=== PATIENT | male | born 1940 | race Caucasian/White ===

== ENCOUNTER 2017-05-16 15:06 | Emergency (ER) | payer MEDICARE, OTHER ==
--- NOTE | 2017-05-16 15:28 | CT ---
Head CT Technique: Multiple axial sections through the brain were obtained. Intravenous contrast was not utilized. Comparison: Prior head CT exam of 09/21/12 and MRI brain of 09/21 12 is available. Findings: Ventricles along with basal cisterns and sulci over convexities are mildly prominent. There is mild diminished density noted within portions of the periventricular and subcortical white matter. There is also some diminished density within the basal ganglia being seen likely of similar etiology. Small hemorrhage is seen within the shannan to the right of midline. No midline shift or mass effect is seen. Bone window settings were reviewed which shows no acute calvarial abnormality. Visualized sinuses are clear. Impression: 1. Small hemorrhage within the shannan. 2. Senescent change as noted above. 3. No additional abnormality is seen. Diagnostic code #5
--- NOTE | 2017-05-16 15:43 | EDM.PDOC ---
ED HPI GENERAL MEDICAL PROBLEM - General Chief Complaint: Neuro Symptoms/Deficits Stated Complaint: [facility] Time Seen by Provider: 05/16/17 15:11 Source of Information: Reports: Patient, EMS, Family () History Limitations: Reports: Physical Impairment - History of Present Illness INITIAL COMMENTS - FREE TEXT/NARRATIVE: According to the patient's , the patient was behaving normally this morning. He came in from outside around 09:30, which was his last normal. He developed generalized weakness, worse on the left than the right, and became aphasic around 10:00. According to both the patient's and EMS, the patient refused to come to the ED. When EMS did arrive, they found the patient's EP to be 210/110 with a heart rate of 72, saturating 96% on room air. The patient refused to have an IV placed. EMS states that the patient DID take his blood pressure medication this morning. Here in the ED, the patient is able to nod and mumble, indicating that he has had a headache for the past 2 days. He denies having chest pain or dyspnea. The patient's PCP is Dr. Lamont Luu. Headache Pain Score (Numeric/FACES): 4 - Related Data Allergies Allergy/AdvReac Type Severity Reaction Status Date / Time Iodinated Contrast- Oral and Allergy Airway Verified 05/16/17 15:36 IV Dye Tightness [Iodinated Contrast Media - IV Dye] ioversol Allergy Airway Verified 05/16/17 15:36 Tightness Penicillins Allergy Hives Verified 05/16/17 15:36 Home Meds: Home Meds Ezetimibe [Zetia] 10 mg PO DAILY 05/16/17 [History] Losartan/Hydrochlorothiazide [Losartan-HCTZ 100-12.5 MG] 1 tab PO DAILY [History] metFORMIN [Glucophage] 1,000 mg PO BIDMEALS 05/16/17 [History] Past Medical History Cardiovascular History: Reports: CAD, High Cholesterol, Hypertension, Other ( See Below) (Bilateral carotid artery stenosis) Musculoskeletal History: Reports: Back Pain, Chronic Endocrine/Metabolic History: Reports: Diabetes, Type II Oncologic (Cancer) History: Reports: Colon - Past Surgical History HEENT Surgical History: Reports: Cataract Surgery (bilateral) GI Surgical History: Reports: Colon (Hemicolectomy), Colonoscopy, EGD Endocrine Surgical History: Reports: Parathyroidectomy Neurological Surgical History: Reports: Lumbar Spine (L4/L5 discectomy and fusion) Musculoskeletal Surgical History: Reports: ORIF (left clavicle) Social & Family History - Tobacco Use Smoking Status *Q: Former Smoker Years of Tobacco use: 33 Packs/Tins Daily: 1 Month Tobacco Last Used: Quit around 1991 Second Hand Smoke Exposure: No - Caffeine Use Caffeine Use: Reports: None - Alcohol Use Alcohol Use History: Yes Days Per Week of Alcohol Use: 0 Alcohol Use Frequency: Rarely - Recreational Drug Use Recreational Drug Use: No - Living Situation & Occupation Living situation: Reports: , with Spouse Occupation: Retired ED ROS GENERAL - Review of Systems Review Of Systems: See Below Constitutional: Reports: No Symptoms HEENT: Reports: No Symptoms Respiratory: Reports: No Symptoms Cardiovascular: Reports: No Symptoms Endocrine: Reports: No Symptoms GI/Abdominal: Reports: No Symptoms : Reports: No Symptoms Musculoskeletal: Reports: No Symptoms Skin: Reports: No Symptoms Neurological: Reports: No Symptoms Psychiatric: Reports: No Symptoms Hematologic/Lymphatic: Reports: No Symptoms Immunologic: Reports: No Symptoms ED EXAM, NEURO - Physical Exam Exam: See Below Exam Limited By: Physical Impairment General Appearance: Alert, WD/WN, No Apparent Distress Eye Exam: Bilateral Eye: Other (Bilateral eyes status post cataract surgery.) Ears: Normal External Exam, Hearing Grossly Normal Nose: Normal Inspection, No Blood Throat/Mouth: Normal Inspection, Normal Lips, Normal Voice, No Airway Compromise Head Exam: Atraumatic, Normocephalic Neck: Normal Inspection, Full Range of Motion Respiratory/Chest: No Respiratory Distress, Lungs Clear, Normal Breath Sounds, No Accessory Muscle Use Cardiovascular: Normal Peripheral Pulses, Regular Rate, Rhythm, No Gallop, No JVD, No Murmur, No Rub GI/Abdominal: Normal Bowel Sounds, Soft, Non-Tender, No Organomegaly, No Distention, No Abnormal Bruit, No Mass (Male) Exam: Deferred Rectal (Males) Exam: Deferred Neurological: Other (The patient is awake, but appears somewhat somnolent. Bilateral pupils status post cataract surgery. The patient is able to follow my finger to the right, but not to the left, and is unable to see my moving fingers on his right visual field on direct visual field, suggesting a homonymous hemianopsia. Flat facial expression - unable to determine if there is a unilateral facial droop. Essentially paralyzed on the left, with minimal strength on the right, upper and lower extremities. No effort to dorsiflex or plantarflex either foot. Sensation appears to be intact.) Back Exam: Normal Inspection, Full Range of Motion, NT Extremities: Normal Inspection, Normal Capillary Refill, Other (1+ pretibial edema, bilaterally) Psychiatric: Other (Unable to assess) Skin Exam: Warm, Dry, Intact, Normal Color, No Rash EKG INTERPRETATION EKG Date: 05/16/17 Time: 15:22 Rhythm: NSR Rate (Beats/Min): 63 [place]: Normal P-Wave: Present QRS: RBBB ST-T: Normal QT: Normal Comparison: NA - No Prior EKG Course - Vital Signs Last Recorded V/S: Last Vital Signs Temp 36.4 C 05/16/17 15:11 Pulse 67 05/16/17 16:04 Resp 19 05/16/17 15:11 BP 216/83 H 05/16/17 16:04 Pulse Ox 97 05/16/17 15:11 - Orders/Labs/Meds Orders: Active Orders 24 hr Category Date Time Status Accu Check [Blood Glucose Check, Bedside] [RC] ONETIME Care 05/16/17 15:19 Active EKG Documentation Completion [RC] STAT Care 05/16/17 15:13 Active Chest 1V Frontal [CR] Stat Exams 05/16/17 15:13 Taken UA W/MICROSCOPIC [URIN] Stat Lab 05/16/17 16:07 Received Labs: Laboratory Tests 05/16/17 05/16/17 05/16/17 Range/Units 15:09 15:30 15:30 WBC 10.29 H (4.23-9.07) K/mm3 RBC 5.24 (4.63-6.08) M/mm3 Hgb 15.7 (13.7-17.5) gm/L Hct 47.0 (40.1-51.0) % MCV 89.7 (79.0-92.2) fl MCH 30.0 (25.7-32.2) pg MCHC 33.4 (32.2-35.5) g/dl RDW Std Deviation 42.5 (35.1-43.9) fL Plt Count 174 (163-337) K/mm3 MPV 12.0 (9.4-12.3) fl Neutrophils % (Manual) 77 H (40-60) % Band Neutrophils % 0 (0-10) % Lymphocytes % (Manual) 16 L (20-40) % Atypical Lymphs % 0 % Monocytes % (Manual) 5 (2-10) % Eosinophils % (Manual) 2 (0.8-7.0) % Basophils % (Manual) 0 L (0.2-1.2) Platelet Estimate Adequate Plt Morphology Comment Normal RBC Morph Comment Normal PT (8.0-13.0) SECONDS INR APTT (22-36) SECONDS Sodium 141 (136-145) mEq/L Potassium 4.2 (3.5-5.1) mEq/L Chloride 105 (98-107) mEq/L Carbon Dioxide 23 (21-32) mEq/L Anion Gap 17.2 H (5-15) BUN 12 (7-18) mg/dL Creatinine 0.9 (0.7-1.3) mg/dL Est Cr Clr Drug Dosing 76.64 mL/min Estimated GFR (MDRD) > 60 (>60) mL/min BUN/Creatinine Ratio 13.3 L (14-18) Glucose 124 H (83-115) mg/dL POC Glucose 126 H (83-110) mg/dL Calcium 9.4 (8.5-10.1) mg/dL Magnesium 1.8 (1.8-2.4) mg/dl Total Bilirubin 0.5 (0.2-1.0) mg/dL AST 21 (15-37) U/L ALT 35 (16-63) U/L Alkaline Phosphatase 99 (46-116) U/L Troponin I 0.036 (0.00-0.056) ng/mL Total Protein 7.8 (6.4-8.2) g/dl Albumin 3.8 (3.4-5.0) g/dl Globulin 4.0 gm/dL Albumin/Globulin Ratio 1.0 (1-2) 05/16/17 Range/Units 15:30 WBC (4.23-9.07) K/mm3 RBC (4.63-6.08) M/mm3 Hgb (13.7-17.5) gm/L Hct (40.1-51.0) % MCV (79.0-92.2) fl MCH (25.7-32.2) pg MCHC (32.2-35.5) g/dl RDW Std Deviation (35.1-43.9) fL Plt Count (163-337) K/mm3 MPV (9.4-12.3) fl Neutrophils % (Manual) (40-60) % Band Neutrophils % (0-10) % Lymphocytes % (Manual) (20-40) % Atypical Lymphs % % Monocytes % (Manual) (2-10) % Eosinophils % (Manual) (0.8-7.0) % Basophils % (Manual) (0.2-1.2) Platelet Estimate Plt Morphology Comment RBC Morph Comment PT 10.3 (8.0-13.0) SECONDS INR 0.95 APTT 26 (22-36) SECONDS Sodium (136-145) mEq/L Potassium (3.5-5.1) mEq/L Chloride (98-107) mEq/L Carbon Dioxide (21-32) mEq/L Anion Gap (5-15) BUN (7-18) mg/dL Creatinine (0.7-1.3) mg/dL Est Cr Clr Drug Dosing mL/min Estimated GFR (MDRD) (>60) mL/min BUN/Creatinine Ratio (14-18) Glucose (83-115) mg/dL POC Glucose (83-110) mg/dL Calcium (8.5-10.1) mg/dL Magnesium (1.8-2.4) mg/dl Total Bilirubin (0.2-1.0) mg/dL AST (15-37) U/L ALT (16-63) U/L Alkaline Phosphatase (46-116) U/L Troponin I (0.00-0.056) ng/mL Total Protein (6.4-8.2) g/dl Albumin (3.4-5.0) g/dl Globulin gm/dL Albumin/Globulin Ratio (1-2) Meds: Medications Discontinued Medications Generic Name Dose Route Start Last Admin Trade Name Freq PRN Reason Stop Dose Admin Hydromorphone HCl 0.5 mg 05/16/17 16:18 05/16/17 16:20 Dilaudid IVPUSH 05/16/17 16:19 0.5 mg ONETIME ONE Administration Hydromorphone HCl Confirm 05/16/17 16:24 Dilaudid Administered 05/16/17 16:25 Dose 0.5 mg .ROUTE .STK-MED ONE Labetalol HCl 20 mg 05/16/17 15:54 05/16/17 16:04 Normodyne IVPUSH 05/16/17 15:55 20 mg ONETIME ONE Administration Protocol - Re-Assessments/Exams Free Text/Narrative Re-Assessment/Exam: 05/16/17 15:46 CT of the head without contrast is read by Dr. James as: 1. Small hemorrhage within the shannan. 2. Senescent change as noted above. 3. No additional abnormality is seen. 05/16/17 15:[address] findings were discussed with the patient's and daughter, at the bedside, and they've agreed to allow transfer of the patient to [facility]. The patient, meanwhile, is shaking his head, indicating that he does not want to go. 05/16/17 16:[address] Joseph, Neurosurgeon at [facility], at 15:52. He would like us to give labetalol to see if we can get the patient's systolic blood pressure down to 140-150 mm Hg. Case then discussed with Dr. Patel, [facility], at 15:58. He accepts the patient for transfer to their Neuro ICU. The patient will be transferred by fixed wing. The CT images have already been pushed to [facility]. 05/16/17 16:21 Portable chest radiograph appears to be grossly unremarkable. Poor inspiratory effort. Cardiac silhouette is within normal limits. No pulmonary vascular congestion. No pleural effusions. No focal infiltrate. No pneumothorax. Formal read per the Radiologist pending. The chest x-ray image was pushed to [facility]. Departure - Departure Time of Disposition: 16:35 Disposition: DC/Tfer to Acute Hospital 02 Condition: Fair Clinical Impression: Hemorrhagic stroke, Uncontrolled hypertension - Discharge Information - My Orders Last 24 Hours: My Active Orders 05/16/17 15:13 EKG Documentation Completion [RC] STAT Chest 1V Frontal [CR] Stat 05/16/17 15:19 Accu Check [Blood Glucose Check, Bedside] [RC] ONETIME 05/16/17 16:07 UA W/MICROSCOPIC [URIN] Stat - Assessment/Plan Last 24 Hours: My Active Orders 05/16/17 15:13 EKG Documentation Completion [RC] STAT Chest 1V Frontal [CR] Stat 05/16/17 15:19 Accu Check [Blood Glucose Check, Bedside] [RC] ONETIME 05/16/17 16:07 UA W/MICROSCOPIC [URIN] Stat
[2017-05-16] MEDS ORDERED: Labetalol 100 MG/20 ML MDV IVPUSH ONE (15:54)
[2017-05-16 16:08] VITALS: BP 216/83
[2017-05-16] MEDS ORDERED: HYDROmorphone 0.5 MG/0.5 ML Syringe IVPUSH ONE (16:18)
[2017-05-16] MEDS ORDERED: HYDROmorphone 0.5 MG/0.5 ML Syringe ONE (16:24)
--- NOTE | 2017-05-17 06:48 | CR ---
Chest: Portable view of the chest was obtained. Comparison: No prior chest x-ray. Heart size and mediastinum are within normal limits. Lungs show no acute parenchymal densities. Bony structures show an old left clavicle fracture. Impression: 1. Incidental finding. Nothing acute is seen. Diagnostic code #2
== END 2017-05-16 16:42 ==
LOC: JD.ED 15:06
DX: I62.9 Nontraumatic intracranial hemorrhage, unspecified (principal); E78.00 Pure hypercholesterolemia, unspecified; I10 Essential (primary) hypertension; E11.9 Type 2 diabetes mellitus without complications; Z91.041 Radiographic dye allergy status; Z88.0 Allergy status to penicillin; Z79.84 Long term (current) use of oral hypoglycemic drugs; Z79.899 Other long term (current) drug therapy; Z87.891 Personal history of nicotine dependence
CPT/HCPCS: 36415; 70450; 71045; 80053; 81001; 82962; 83735; 84484; 85025; 85610; 85730; 93005; 96374; 96375; 99285; J1170; 99284-25

== ENCOUNTER 2017-08-17 11:44 | Emergency (ER) | payer MEDICARE, OTHER ==
[2017-08-17] MEDS ORDERED: Metoprolol Tartrate 25 MG Tab PO ONE (12:36)
--- NOTE | 2017-08-17 12:40 | EDM.PDOCBH ---
ED HPI GENERAL MEDICAL PROBLEM - General Chief Complaint: Behavioral/Psych Stated Complaint: PSYCH EVAL Time Seen by Provider: 08/17/17 12:06 Source of Information: Reports: Patient, Police History Limitations: Reports: No Limitations - History of Present Illness INITIAL COMMENTS - FREE TEXT/NARRATIVE: Patient is a 77-year-old male who presents to the ED via [employer] for mental health clearance. Patient states he got upset with his this morning when he was attempting to siphon the gas from the snowblower into into his lawnmower and was unable to find the materials to do so. Patient states has been throwing some of his things away over the past few years. Patient became very irritated and an argument ensued with his . Made the comment that he should go hang himself. Per PD states patient went and grabbed a extension cord and thus prompting his to call 911. Patient with admission to the ED denies being suicidal. This was a idle threat. He was more aggravated that his items were being thrown away. Denies any depression after experiencing a hemorrhagic stroke and coded while during transport. States he's once and does not want to do it again. He is very active at home and is motivated at this time of the year 2 start with his gardening projects. He has no previous psych history or dependency issues. States after the hemorrhagic stroke he does have some short-term memory loss. Otherwise there is no other deficits noted. Denies changes to his medications. Cannot recall all his medications due to the short-term memory loss. Denies any alcohol use and or recreational drugs. He offers no additional complaints. Generalized Pain Score (Numeric/FACES): 3 - Related Data Allergies Allergy/AdvReac Type Severity Reaction Status Date / Time Iodinated Contrast- Oral and Allergy Airway Verified 08/17/17 11:47 IV Dye Tightness [Iodinated Contrast Media - IV Dye] ioversol Allergy Airway Verified 08/17/17 11:47 Tightness Penicillins Allergy Hives Verified 08/17/17 11:47 Home Meds: Home Meds Ezetimibe [Zetia] 10 mg PO DAILY 05/16/17 [History] metFORMIN [Glucophage] 1,000 mg PO BIDMEALS 05/16/17 [History] Aspirin [Halfprin] 81 mg PO DAILY 08/17/17 [History] Docusate Sodium 100 mg PO BID 08/17/17 [History] Famotidine 20 mg PO BEDTIME 08/17/17 [History] Losartan [Cozaar] 100 mg PO DAILY 08/17/17 [History] glipiZIDE [Glipizide ER] 2.5 mg PO DAILY 08/17/17 [History] Past Medical History Cardiovascular History: Reports: CAD, High Cholesterol, Hypertension, Other ( See Below) Musculoskeletal History: Reports: Back Pain, Chronic Neurological History: Reports: Other (See Below) Other Neuro History: recent hemorhagic stroke Endocrine/Metabolic History: Reports: Diabetes, Type II Oncologic (Cancer) History: Reports: Colon - Past Surgical History HEENT Surgical History: Reports: Cataract Surgery GI Surgical History: Reports: Colon, Colonoscopy, EGD Endocrine Surgical History: Reports: Parathyroidectomy Neurological Surgical History: Reports: Lumbar Spine Musculoskeletal Surgical History: Reports: ORIF Social & Family History - Tobacco Use Smoking Status *Q: Former Smoker Years of Tobacco use: 30 Packs/Tins Daily: 0.5 Used Tobacco, but Quit: Yes Month/Year Tobacco Last Used: 28 years ago Second Hand Smoke Exposure: No - Caffeine Use Caffeine Use: Reports: Coffee - Alcohol Use Days Per Week of Alcohol Use: 0 - Recreational Drug Use Recreational Drug Use: No - Living Situation & Occupation Living situation: Reports: , with Spouse Occupation: Retired ED ROS GENERAL - Review of Systems Review Of Systems: ROS reveals no pertinent complaints other than HPI. Constitutional: Reports: No Symptoms HEENT: Reports: No Symptoms Respiratory: Reports: No Symptoms Cardiovascular: Reports: No Symptoms GI/Abdominal: Reports: No Symptoms Skin: Reports: No Symptoms Neurological: Reports: No Symptoms Psychiatric: Reports: Agitation (about current situation and being in the E.D. he is embarassed. ). Denies: Anxiety, Confusion, Depression, Homicidal Ideation , Mood Lability, Suicidal Ideation ED EXAM, BEHAVIORAL HEALTH - Physical Exam Exam: See Below Exam Limited By: No Limitations General Appearance: Alert, WD/WN, No Apparent Distress Ears: Hearing Grossly Normal Nose: Normal Inspection Throat/Mouth: Normal Voice, No Airway Compromise Neck: Normal Inspection, Supple Respiratory/Chest: No Respiratory Distress, Lungs Clear, Normal Breath Sounds, No Accessory Muscle Use, Chest Non-Tender Cardiovascular: Normal Peripheral Pulses, Regular Rate, Rhythm Extremities: Normal Inspection Neurological: Alert, Normal Mood/Affect, CN II-XII Intact, Normal Cognition, No Motor/Sensory Deficits, Oriented x 3 Psychiatric: Alert, Normal Affect, Normal Cognition, Oriented, Tearful. No: Flight of Ideas, Homicidal Thoughts, Voodoo Delusions, Suicidal Plan, Suicidal Thoughts, Auditory Hallucinations, Visual Hallucinations, Paranoid Thoughts Skin Exam: Warm, Dry, Intact, Normal color, No rash COURSE, BEHAVIORAL HEALTH COMP - Course Vital Signs: Last Vital Signs Temp 97.2 F 08/17/17 11:48 Pulse 60 08/17/17 14:15 Resp 16 08/17/17 14:15 BP 199/82 H 08/17/17 14:15 Pulse Ox 96 08/17/17 14:15 Orders, Labs, Meds: Medications Discontinued Medications Generic Name Dose Route Start Last Admin Trade Name Freq PRN Reason Stop Dose Admin Lorazepam 1 mg 08/17/17 13:53 08/17/17 13:59 Ativan PO 08/17/17 13:54 1 mg ONETIME ONE Administration Metoprolol Tartrate 25 mg 08/17/17 12:36 08/17/17 12:48 Lopressor PO 08/17/17 12:37 25 mg ONETIME ONE Administration Re-Assessment/Re-Exam: [address] Pelaez. Agrees idol threat out of anger. He has no psych history. Does not believe patient requires inpatient evaluation. Followup with PCP and or other psych providers as needed. 1237 Patients BP remains elevated 199/82. This is quite elevated from normal baseline of 116/s. We do not have up to date med list. He is not bradycardic and other than being aggravated has no complaints. States BP would be elevated with being embarrassed over current situation. I will order lopressor 25mg PO. Suspect BP will improve with discharge from the E.D. 1353 Patients BP remains elevated 204/99. Remains somewhat embarrassed/anxious ready to go home. I have ordered ativan 1mg PO. He has no other complaints. He is not driving. Wants to go home. Discharge with instructions as documented. Departure - Departure Time of Disposition: 14:01 Disposition: Home, Self-Care 01 Clinical Impression: HTN (hypertension) Qualifiers: Hypertension type: unspecified Qualified Code(s): I10 - Essential (primary) hypertension Situational disturbance Qualifiers: Adjustment disorder type: unspecified type Qualified Code(s): F43.20 - Adjustment disorder, unspecified - Discharge Information Instructions: Hypertension, [id number], Preventing Hypertension, Managing Your Hypertension, Hypertension Referrals: Lamont Luu MD [Primary Care Provider] - Lucio Pelaez MD [Physician] - Yashira Back NP [Nurse Practitioner] - [facility] [Outside] Forms: ED Department Discharge Additional Instructions: Please monitor blood pressure daily. Keep a daily log. Take the blood pressure at the same time and same arm. Please follow up with your primary care provider in the next week to discuss results of the blood pressure readings. Bring her blood pressure machine with you. Continue taking all your home medications as prescribed. If he should fine you are more aggravated and also experiencing depression and/or suicidal ideations please return back to the ED. F/u with your PCP in the next week or a psychiatric provider to discuss treatment options. Please return to the ED if you develop any new or worsening symptoms. No driving today and or operating heavy equipment since receiving a sedative medication in the E.D.
[2017-08-17] MEDS ORDERED: LORazepam 1 MG Tab PO ONE (13:53)
[2017-08-17 14:17] VITALS: BP 199/82
== END 2017-08-17 14:15 | disposition home or self-care (01) ==
LOC: JD.ED 11:44 → SUPCPDRO 11:44 → JD.ED 14:15
DX: F43.20 Adjustment disorder, unspecified (principal); I10 Essential (primary) hypertension; E78.00 Pure hypercholesterolemia, unspecified; E11.9 Type 2 diabetes mellitus without complications; Z91.041 Radiographic dye allergy status; Z88.8 Allergy status to other drugs, medicaments and biological substances; Z88.0 Allergy status to penicillin; Z79.84 Long term (current) use of oral hypoglycemic drugs; Z79.82 Long term (current) use of aspirin; Z79.899 Other long term (current) drug therapy; Z87.891 Personal history of nicotine dependence
CPT/HCPCS: 99285; A9270; 99283

== ENCOUNTER 2017-09-04 13:40 | Emergency (ER) | payer MEDICARE, OTHER ==
[2017-09-04] MEDS ORDERED: Sodium Chloride 0.9% 1,000 ML ONE (14:38)
[2017-09-04] MEDS ORDERED: Aluminum Hydroxide/Magnesium Hydroxide/Simethicone Susp 30 ML Cup ONE (14:38)
[2017-09-04] MEDS ORDERED: Nitroglycerin/D5W 25 MG/250 ML BOTTLE ONE (14:39)
[2017-09-05 07:10] VITALS: BP 152/82
--- NOTE | 2017-09-05 12:21 | EDM.PDOC ---
ED HPI GENERAL MEDICAL PROBLEM - General Chief Complaint: Chest Pain Stated Complaint: CHEST PAIN Time Seen by Provider: 09/04/17 14:15 Source of Information: Reports: Patient, Family (spouse), Provider History Limitations: Reports: No Limitations - History of Present Illness INITIAL COMMENTS - FREE TEXT/NARRATIVE: 77-year-old male sent across from [facility] by Dr. Luu-his primary care physician. Patient was at the clinic for follow-up of hypertension. However when he lay down on the table he suddenly developed severe epigastric lower retrosternal chest pain rating up into his throat. Not go away immediately and lasted for a significant length of time. The concern was therefore for possible dissecting aortic aneurysm or cardiac event. Patient has had previous CVA and has known severe atherosclerosis. He has also had previous myocardial infarction. He was given aspirin 325 mg chewed at the clinic. He was also given initial dose of nitroglycerin 0.4 mg which did seem to alleviate good deal of his pain. He states the pain was as high as a 7 was at the clinic and down to 1 or 2 when he arrived in the ED. He admits that he has been suffering more heartburn as of late and is been getting up in the night to use Pepto-Bismol to take away the discomfort. He has never taken Prilosec or Zantac or Pepcid. Patient was transported to the ED per ambulance. ECG done by triage nurse shows sinus rhythm at 70/m. He does have a right bundle branch block pattern which Dr. Luu confirmed is been present for a lengthy period of time. Every 2 interval was mildly prolonged. No signs of ischemia were evident. Onset: Today Onset Date: 09/04/17 Onset Time: 13:45 Duration: Minutes: Location: Reports: Chest, Radiates to (Radiating up into his throat and neck.) Quality: Reports: Ache, Burning, Pressure Severity: Moderate (Rated initially as 7 out of 10. When he arrived in the ED of is down to 1 out of 10 and felt it was slowly going away) Improves with: Reports: Other (Nitroglycerin tablets provided by the clinic seem to alleviate a good portion of his pain.) Worsens with: Reports: None Context: Reports: Other (Occurred when he laid down on the examining table and Dr. Luu's office today). Denies: Activity, Exercise, Lifting, Sick Contact, Trauma Associated Symptoms: Reports: Chest Pain, Malaise. 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: Reports: Other (see below) (Received aspirin 324 mg 2 did clinic as well as nitroglycerin tablet 0.4 mg) - Related Data Allergies Allergy/AdvReac Type Severity Reaction Status Date / Time Iodinated Contrast- Oral and Allergy Airway Verified 08/17/17 11:47 IV Dye Tightness [Iodinated Contrast Media - IV Dye] ioversol Allergy Airway Verified 08/17/17 11:47 Tightness Penicillins Allergy Hives Verified 08/17/17 11:47 Home Meds: Home Meds Ezetimibe [Zetia] 10 mg PO DAILY 05/16/17 [History] metFORMIN [Glucophage] 1,000 mg PO BIDMEALS 05/16/17 [History] Aspirin [Halfprin] 81 mg PO DAILY 08/17/17 [History] Docusate Sodium 100 mg PO BID 08/17/17 [History] Famotidine 20 mg PO BEDTIME 08/17/17 [History] Losartan [Cozaar] 100 mg PO DAILY 08/17/17 [History] glipiZIDE [Glipizide ER] 2.5 mg PO DAILY 08/17/17 [History] Past Medical History Cardiovascular History: Reports: CAD, High Cholesterol, Hypertension, [place], Other (See Below) Musculoskeletal History: Reports: Back Pain, Chronic Neurological History: Reports: Other (See Below) Other Neuro History: recent hemorhagic stroke May 2017. Developed transient left-sided hemiparesis. Currently able to get around without a gait aid. No visual deficits. Endocrine/Metabolic History: Reports: Diabetes, Type II (Currently controlled with oral meds and diet.) Oncologic (Cancer) History: Reports: Colon - Past Surgical History HEENT Surgical History: Reports: Cataract Surgery GI Surgical History: Reports: Colon, Colonoscopy, EGD Endocrine Surgical History: Reports: Parathyroidectomy Neurological Surgical History: Reports: Lumbar Spine Musculoskeletal Surgical History: Reports: ORIF Social & Family History - Tobacco Use Smoking Status *Q: Former Smoker Years of Tobacco use: 30 Packs/Tins Daily: 0.5 Used Tobacco, but Quit: Yes Month/Year Tobacco Last Used: 28 years ago Second Hand Smoke Exposure: No - Caffeine Use Caffeine Use: Reports: Coffee - Alcohol Use Days Per Week of Alcohol Use: 0 - Recreational Drug Use Recreational Drug Use: No - Living Situation & Occupation Living situation: Reports: , with Spouse Occupation: Retired ED ROS GENERAL - Review of Systems Review Of Systems: See Below Constitutional: Reports: Malaise, Fatigue. Denies: Fever, Chills, Weight Loss HEENT: Reports: Glasses Respiratory: Reports: Shortness of Breath. Denies: Wheezing, Pleuritic Chest Pain (At times), Cough, Sputum, Hemoptysis, Other Cardiovascular: Reports: Chest Pain, Blood Pressure Problem (See history present illness was being seen in the clinic due to recently elevation of his blood pressure with change in medications), Dyspnea on Exertion (Mild). Denies : Claudication, Edema, Lightheadedness, Orthopnea, Palpitations Endocrine: Reports: Fatigue GI/Abdominal: Reports: No Symptoms, Other (On further questioning admits to GERD fairly frequently and often awakens in the night with symptoms and uses Macey-Angelica to reduce the pain.) : Reports: Frequency ( BPH), Other (Urinary frequency with nocturia 3.) Musculoskeletal: Reports: Other (Has some weakness of his left arm and leg after suffering CVA in May. Walks without the need of a gait aid.) Skin: Reports: No Symptoms Neurological: Reports: Headache, Difficulty Walking (Sided weakness in his leg and arm. Mild has to), Weakness, Gait Disturbance. Denies: Dizziness, Numbness , Syncope (Mild headache after nitroglycerin was given at the clinic today.), Tingling, Trouble Speaking, Change in Speech Psychiatric: Reports: No Symptoms Hematologic/Lymphatic: Reports: No Symptoms Immunologic: Reports: No Symptoms ED EXAM, GENERAL - Physical Exam Exam: See Below Exam Limited By: No Limitations General Appearance: Alert, WD/WN, No Apparent Distress, Other (Fairly flat affect.) Eye Exam: Bilateral Eye: Normal Inspection, PERRL Throat/Mouth: Normal Inspection, Normal Oropharynx, Other Head: Atraumatic, Normocephalic (Uvula is in the midline) Neck: Normal Inspection, Supple, Non-Tender, Full Range of Motion, Carotid Bruit (Fairly loud left carotid bruit identified. Patient has had ultrasound as well as carotid arteries after his CVA and apparently nothing this bad enough to require surgery.). No: Lymphadenopathy (L), Lymphadenopathy (R) Respiratory/Chest: No Respiratory Distress, Lungs Clear, Normal Breath Sounds, No Accessory Muscle Use, Chest Non-Tender, Other (I could elicit no chest wall pain.). No: Respiratory Distress Cardiovascular: Normal Peripheral Pulses, Regular Rate, Rhythm, No Edema, No Gallop, No Murmur, No Rub, Other (ECG reveals sinus rhythm with no ectopy.) Peripheral Pulses: 1+: Posterior Tibial (L), Posterior Tibial (R), Dorsalis Pedis (L), Dorsalis Pedis (R) GI/Abdominal: Normal Bowel Sounds, Soft, Non-Tender, No Organomegaly, No Abnormal Bruit, No Mass, Pelvis Stable, Tender Extremities: Normal Inspection, Normal Range of Motion, Non-Tender, No Pedal Edema, Other (Very slight weakness of his left leg when I asked him to hold it against gravity.) Neurological: Alert, Oriented, CN II-XII Intact, Normal Cognition, Other (Walks with a wide-based gait with very slight ataxia.) Psychiatric: Flat Affect Skin Exam: Warm, Dry, Intact, Normal Color, No Rash EKG INTERPRETATION EKG Date: 09/04/17 Time: 14:12 Rhythm: NSR Rate (Beats/Min): 70 [place]: Normal P-Wave: Present QRS: RBBB (Which apparently apparently has been present for a lengthy period of time) ST-T: Normal QT: Prolonged (QT is mildly prolonged at 425.) EKG Interpretation Comments: Borderline ECG with no signs of ischemia Course - Vital Signs Last Recorded V/S: Last Vital Signs Temp 36.3 C 09/04/17 17:58 Pulse 61 09/04/17 17:58 Resp 16 09/04/17 17:58 BP 152/82 H 09/04/17 17:58 Pulse Ox 96 09/04/17 17:58 - Orders/Labs/Meds Orders: Active Orders 24 hr Category Date Time Status EKG 12 Lead [EKG Documentation Completion] [RC] STAT Care 09/04/17 14:12 Active Chest 1V Frontal [CR] Routine Exams 09/04/17 14:25 Taken Meds: Medications Discontinued Medications Generic Name Dose Route Start Last Admin Trade Name Freq PRN Reason Stop Dose Admin Al Hydroxide/Mg Hydroxide Confirm 09/04/17 14:38 Mag-Al Plus Administered 09/04/17 14:39 Dose 30 ml .ROUTE .STK-MED ONE Sodium Chloride Confirm 09/04/17 14:38 Normal Saline Administered 09/04/17 14:39 Dose 1,000 mls @ as directed .ROUTE .STK-MED ONE Nitroglycerin/Dextrose Confirm 09/04/17 14:39 Nitroglycerin 25 Mg/D5w 250 Ml Administered 09/04/17 14:40 Dose 25 mg in 250 mls @ as directed .ROUTE .STK-MED ONE - Radiology Interpretation Free Text/Narrative:: 77-year-old male presents the ED per ambulance after developing central chest pain after lying down on the gurney for examination while at Dr. Luu`s office this afternoon. Patient was at the clinic for hypertension review. He's had previous CVA and has known coronary disease. He was given 325 mg aspirin chewed and did receive nitroglycerin sublingual 1 dose and it did seem to alleviate a good deal of his chest pain going from a 7 down to 1 or 2 by time he arrived in the ED. Further questioning indicates that the pain was retrosternal and seemed to start in the pit of the stomach and radiated up into his throat and neck felt on both sides of his anterior neck and throat. Eyes any real heartburn. However history suggests she's been expressing heartburn a good portion of the nights he gets up and uses Macey-Angelica 2 or 3 in the morning. This suggests she is having silent reflux without heartburn symptoms. ECG done by triage nurse shows sinus rhythm at 70/m with a slightly prolonged QT interval. No signs of ischemia. He has a right bundle branch block pattern which apparently is been present for a lengthy period of time. Plan routine labs to include cardiac markers d-dimer and CRP. One view chest x-ray to be done. Patient be placed on nitroglycerin drip at 10 mcg/m until we rule out myocardial infarction. Will be given Maalox 30 mils by mouth. - Re-Assessments/Exams Free Text/Narrative Re-Assessment/Exam: 09/04/17 14:54 Chest x-ray one view done portably reveals slight tortuosity of the thoracic aorta. Cardiac silhouette is otherwise normal in size. Lungs suggest mild diffuse vascular congestion pattern. Right pulmonary artery is moderately prominent. 09/04/17 15:37: Initial labs reveal a total white count of 7.58 53% neutrophils and no bands reported. Hemoglobin is 14.3 with hematocrit of 43.5. Platelets are normal at 211,000. PT is 10.9 with an INR 1.0. PTT is 30.2. Initial cardiac markers showed troponin I of less than 0.006. CK-MB fraction was mildly elevated at 4.7. On appear to be slightly hemolyzed. D-dimer is pending. Plan will be to keep him for the next couple of hours and repeat his cardiac markers to ensure that we're not missing an occult cardiac infarction. Patient is pain- free at this time after only receiving Maalox 30 mL by mouth. He is on a nitroglycerin drip at 10 mcg/m 09/05/17 17:37 seconds set of cardiac markers are now available. He reveal a troponin I of less than 0.005 and a CK-MB fraction slightly lower than the first at 4.1. The remainder of his chemistry is essentially normal. BUN was mildly elevated at 19. Sodium 137 potassium 4.0. Creatinine was 0.95. Liver function normal. D-dimer came back at 0.86 which I chose to ignore since it's quite low and nearly correlates with his age. His O2 sats remained 96-97% while in the ED. Anxious to leave the department and will be therefore discharged to home. He will continue all current medications as prescribed by Dr. Luu. Advised him to think about purchasing Pepcid or Zantac to be taken at that time prevent occult gastroesophageal reflux disease and suspect esophageal spasm which I think caused his chest pain today. He may well have a hiatal hernia to since his pain radiate up into his throat and neck. No evidence of heart related illness. Follow-up with Dr. Luu if any further problems occur Departure - Departure Time of Disposition: 17:45 Disposition: Home, Self-Care 01 Condition: Fair Clinical Impression: Non-cardiac chest pain, Esophageal spasm Referrals: Lamont Luu MD [Primary Care Provider] - Forms: ED Department Discharge Additional Instructions: Evaluation the emergent today due to development of central chest pain rating up into her throat and neck while at `s office for examination today. You at the clinic for hypertension review. He developed central chest pain rating from the epigastrium up into her neck and throat that did not dissipate with time. Potential for cardiac illness was appreciated. You were given 324 mg aspirin at the clinic and then nitroglycerin or 0.4 mg which did seem to alleviate a good deal of your central chest pain. You're transferred to the ED per ambulance. Evaluation here revealed no changes in your ECG to suggest ischemia or heart attack. Chest x-ray was within normal limits other than prominence of the right pulmonary artery. Cardiac markers evaluation by blood testing 23 hours apart did not reveal any evidence of heart attack. Chest pain dissipated shortly after arrival on the nitroglycerin drip. Ventricles and drip was discontinued on hour before your discharge with no recurrence of chest pain. I suspect her chest pain was due to esophageal spasm or hiatal hernia as it occurred when he laid down. History suggests you are experiencing occult gastroesophageal reflux disease with waking up at night and use of Macey-Angelica to reduce the pain. The suggested you are refluxing during the night while asleep. Suggest either Zantac or Pepcid at bedtime to try and reduce the acid content in your stomach. It's very important that when you go to bed you have not eaten for 3 hours before lying down. If symptoms persist and follow-up with Dr. Luu who can arrange an upper GI endoscopy. At present continue all medications as prescribed by Dr. Luu. - My Orders Last 24 Hours: My Active Orders 09/04/17 14:12 EKG 12 Lead [EKG Documentation Completion] [RC] STAT 09/04/17 14:25 Chest 1V Frontal [CR] Routine - Assessment/Plan Last 24 Hours: My Active Orders 09/04/17 14:12 EKG 12 Lead [EKG Documentation Completion] [RC] STAT 09/04/17 14:25 Chest 1V Frontal [CR] Routine
--- NOTE | 2017-09-05 15:29 | CR ---
Chest: Frontal view of the chest was obtained. Comparison: Prior chest x-ray of 05/16/17. Heart size and mediastinum are normal. Atherosclerotic change is seen within the aorta. Lungs are clear. Prior healed fracture within the left clavicle is seen. Degenerative spurring is noted within the spine. Impression: 1. Nothing acute is seen. Incidental findings. Diagnostic code #2
== END 2017-09-04 17:58 | disposition home or self-care (01) ==
LOC: JD.ED 13:40
DX: R07.89 Other chest pain (principal); K22.4 Dyskinesia of esophagus; I25.10 Atherosclerotic heart disease of native coronary artery without angina pectoris; E78.00 Pure hypercholesterolemia, unspecified; I10 Essential (primary) hypertension; I25.2 Old myocardial infarction; Z91.041 Radiographic dye allergy status; Z88.0 Allergy status to penicillin; Z79.899 Other long term (current) drug therapy; Z79.84 Long term (current) use of oral hypoglycemic drugs; Z79.82 Long term (current) use of aspirin; Z87.891 Personal history of nicotine dependence
CPT/HCPCS: 71045; 93005; 96361; 96365; 96366; 99285; A9270; J7040; 93010; 99284-25

== ENCOUNTER 2018-10-11 08:20 | Day surgery (SDC) | payer MEDICARE, OTHER ==
[~2018-10-11 08:20] MED LIST: Lidocaine 1%/Sod Bicarbonate in NS 8.4% 1 ML Syringe IDERM PRN; Sodium Chloride 0.9% 10 ML Syringe FLUSH PRN
[2018-10-11] MEDS: Lactated Ringers 1,000 ML IV SCH ×2 (08:50→11:32)
--- NOTE | 2018-10-11 09:49 | PCM.PREANE ---
Preanesthetic Assessment - Anesthesia/Transfusion/Family Hx Anesthesia History: Prior Anesthesia Without Reaction Family History of Anesthesia Reaction: No Transfusion History: No Prior Transfusion(s) Intubation History: Unknown - Review of Systems General: No Symptoms, Other Pulmonary: No Symptoms Cardiovascular: No Symptoms Gastrointestinal: Abdominal Pain Other: Reports: Thyroid Problems - Physical Assessment NPO Status Date: 10/10/18 NPO Status Time: 20:00 O2 Sat by Pulse Oximetry: 95 Respiratory Rate: 16 Vital Signs: Last Vital Signs Temp 36.4 C 10/11/18 08:30 Pulse 67 10/11/18 08:30 Resp 16 10/11/18 08:30 BP 156/83 H 10/11/18 08:30 Pulse Ox 95 10/11/18 08:30 Height: 1.8 m Weight: 85.275 kg ASA Class: 3 Mental Status: Alert & Oriented x3 Airway Class: Mallampati = 2 Dentition: Reports: Dentures ROM/Head Extension: Full Lungs: Clear to Auscultation, Normal Respiratory Effort Cardiovascular: Regular Rate, Regular Rhythm, No Murmurs - Lab Values: Laboratory Last Values POC Glucose 127 mg/dL (83-110) H 10/11/18 08:49 - Allergies Allergies/Adverse Reactions: Allergies Allergy/AdvReac Type Severity Reaction Status Date / Time Iodinated Contrast- Oral and Allergy Airway Verified 10/10/18 13:55 IV Dye Tightness [Iodinated Contrast Media - IV Dye] ioversol Allergy Airway Verified 10/10/18 13:55 Tightness Penicillins Allergy Hives Verified 10/10/18 13:55 Etbwslr-[id number]-Nqd Reductase Allergy Muscle Verified 10/10/18 13:55 Inhibitor Aches - Blood Blood Available: No Product(s) Available: None - Anesthesia Plan Pre-Op Medication Ordered: None - Acknowledgements Anesthesia Type Planned: MAC Pt an Appropriate Candidate for the Planned Anesthesia: Yes Alternatives and Risks of Anesthesia Discussed w Pt/Guardian: Yes Pt/Guardian Understands and Agrees with Anesthesia Plan: Yes PreAnesthesia Questionnaire HEENT History: Reports: Other (See Below) Other HEENT History: periodontal disease Cardiovascular History: Reports: CAD, High Cholesterol, Hypertension, [place], Other (See Below) Respiratory History: Reports: None Gastrointestinal History: Reports: GERD Genitourinary History: Reports: None MILK TREATER History: Reports: None Musculoskeletal History: Reports: Back Pain, Chronic Neurological History: Reports: CVA, Other (See Below) Other Neuro History: recent hemorhagic stroke, hemiplegia, hemiparesis of left side Psychiatric History: Reports: None Endocrine/Metabolic History: Reports: Diabetes, Type II, Hyperparathyroidism Hematologic History: Reports: None Immunologic History: Reports: None Oncologic (Cancer) History: Reports: Basal Cell Carcinoma, Colon Dermatologic History: Reports: Other (See Below) Other Dermatologic History: basal cell carcinoma - Past Surgical History Head Surgeries/Procedures: Reports: None HEENT Surgical History: Reports: Cataract Surgery Cardiovascular Surgical History: Reports: Varicose Respiratory Surgical History: Reports: None GI Surgical History: Reports: Colon, Colonoscopy, EGD, Hernia Repair/Other Female Surgical History: Reports: None Male Surgical History: Reports: None Endocrine Surgical History: Reports: Parathyroidectomy Neurological Surgical History: Reports: Laminectomy, Lumbar Spine Musculoskeletal Surgical History: Reports: ORIF Other Musculoskeletal Surgeries/Procedures:: clavicle fx Oncologic Surgical History: Reports: None Dermatological Surgical History: Reports: None - SUBSTANCE USE Smoking Status *Q: Former Smoker Recreational Drug Use History: No - HOME MEDS Home Medications: Home Meds Ezetimibe [Zetia] 10 mg PO DAILY 05/16/17 [History] Aspirin [Halfprin] 81 mg PO DAILY 08/17/17 [History] Famotidine 20 mg PO BEDTIME 08/17/17 [History] glipiZIDE [Glipizide ER] 2.5 mg PO BEDTIME 08/17/17 [History] Calcium Carb/Magnesium Hydrox [Rolaids Chewable Tablet] 1 tab PO ASDIRECTED PRN 10/10/18 [History] Docusate Sodium [Colace] 100 mg PO BID 10/10/18 [History] Famotidine/Ca Carb/Mag Hydrox [Tums Dual Action] 1 tab PO DAILY PRN 10/10/18 [ History] Losartan/Hydrochlorothiazide [Hyzaar 100-25 Tablet] 1 tab PO DAILY 10/10/18 [ History] Mag Hydrox/Al Hydrox/Simeth [Maalox Maximum Strength Susp] 15 ml PO ASDIRECTED PRN 10/10/18 [History] amLODIPine Besylate [Norvasc] 10 mg PO BEDTIME 10/10/18 [History] metFORMIN HCl [Metformin HCl] 1,000 mg PO BID 10/10/18 [History] - CURRENT (IN HOUSE) MEDS Current Meds: Current Medications Lactated Ringer's (Ringers, Lactated) 1,000 mls @ 125 mls/hr IV ASDIRECTED ALISHA Stop: 10/11/18 23:00 Last Admin: 10/11/18 08:50 Dose: 125 mls/hr Lidocaine/Sodium Bicarbonate (Buffered Lidocaine 1% In Ns 8.4%) 0.25 ml IDERM ONETIME PRN PRN Reason: Prior to IV Start Stop: 10/11/18 18:00 Sodium Chloride (Saline Flush) 10 ml FLUSH ASDIRECTED PRN PRN Reason: Keep Vein Open Stop: 10/11/18 18:00
--- NOTE | 2018-10-11 11:13 | PCM.POSTAN ---
POST ANESTHESIA ASSESSMENT - MENTAL STATUS Mental Status: Alert - RESPIRATORY Respiratory Status: Respiratory Rate WNL, Airway Patent, O2 Saturation Stable, Supplemental Oxygen - CARDIOVASCULAR CV Status: Pulse Rate WNL, Blood Pressure Stable - GASTROINTESTINAL GI Status: No Symptoms - POST OP HYDRATION Hydration Status: Adequate & Stable
--- NOTE | 2018-10-11 11:13 | PCM48HPAN ---
Post Anesthesia Note - EVALUATION WITHIN 48HRS OF ANESTHETIC Vital Signs in Normal Range: Yes Patient Participated in Evaluation: Yes Respiratory Function Stable: Yes Airway Patent: Yes Cardiovascular Function Stable: Yes Hydration Status Stable: Yes Pain Control Satisfactory: Yes Nausea and Vomiting Control Satisfactory: Yes Mental Status Recovered: Yes Resp Rate: 16
--- NOTE | 2018-10-11 11:14 | PCM.OPNOTE ---
- General Post-Op/Procedure Note Date of Surgery/Procedure: 10/11/18 Operative Procedure(s): EGD with bx and colonoscopy to cecum with polypectomy Pre Op Diagnosis: GERD/change in bowel habits Post-Op Diagnosis: Same Anesthesia Technique: MAC Primary Surgeon: Doug Arzola EBL in mLs: 0 Complications: None Condition: Good
[2018-10-11 13:36] VITALS: BP 144/74
--- NOTE | 2018-10-12 07:49 | OR ---
DATE OF OPERATION: 10/11/2018 SURGEON: Doug Arzola MD PREOPERATIVE DIAGNOSIS: Gastroesophageal reflux disease. POSTOPERATIVE DIAGNOSIS: Gastroesophageal reflux disease. OPERATION PERFORMED: Esophagogastroduodenoscopy with biopsy. FINDINGS: Second portion of the duodenum, duodenal bulb, and pyloric channel unremarkable. Antrum, body, and cardia of the stomach did not show any acute pathology. Biopsies of the antrum were done looking for H. pylori. J-maneuver showed an intact hiatus. The fundus, body, and cardia of the stomach unremarkable. Scope withdrawn to the GE junction, which was located at 40 cm, did not show any acute process. Rest of the esophagus was unremarkable. DESCRIPTION OF PROCEDURE: The patient was taken to the endoscopy room, connected to monitoring equipment, given IV sedation. He was then placed in the left lateral position. Bite block was inserted. A video Olympus gastroscope placed in the posterior oropharynx. Under direct vision, this was threaded past the cricopharyngeus down the esophagus, into the stomach. The stomach was insufflated, and the scope passed through the pylorus to the second portion of the duodenum. It was then slowly withdrawn showing normal 2nd portion of the duodenum, duodenal bulb, and pyloric channel. Antrum, body, cardia, and stomach were reviewed. J-maneuver showed the fundus and cardia, but did not show any acute pathology. Biopsies of the antrum were then performed. Scope withdrawn to the GE junction, which showed a straight Z-line and no acute pathology. Biopsies of the gastroesophageal junction were performed. Rest of the esophagus viewed as the scope withdrawn was normal. The patient tolerated the procedure and IV sedation continued for colonoscopy. ANESTHESIA: ESTIMATED BLOOD LOSS: MMODAL /[id number]
--- NOTE | 2018-10-12 07:53 | OR ---
DATE OF OPERATION: 10/11/2018 SURGEON: Doug Arzola MD PREOPERATIVE DIAGNOSIS: Change in bowel habits. POSTOPERATIVE DIAGNOSIS: Change in bowel habits. OPERATION PERFORMED: Colonoscopy to the cecum with polypectomy. ANESTHESIA: Done under IV sedation. FINDINGS: Sessile polyp subcentimeter in the cecum, which was completely removed and retrieved by snare. Cold snare was used. There was mild sigmoid diverticulosis and internal hemorrhoids. There were no angiodysplasias, large tumor masses, or ulcerations. DESCRIPTION OF PROCEDURE: Having been taken to the endoscopy room, connected to monitoring equipment for upper GI endoscopy and given IV sedation, the IV sedation was continued for colonoscopy. He was placed in the left lateral position. Perianal area was inspected. Some external hemorrhoidal tags and low sphincter tone on rectal exam. A video Olympus colonoscope was then introduced into the rectum and threaded up without problem to the cecum, where the appendicular orifice was noted. Prep was excellent. [place] Cleans[employer] Score grade A throughout the colon. The scope was slowly withdrawn showing cecum, ascending colon, transverse colon, descending colon, sigmoid colon, and rectum. Retroflexed view was done. A sessile polyp was noted in the cecum, and this was removed by cold snare and retrieved. The patient tolerated the procedure, sent to the recovery room in a stable condition and will be followed up in the clinic. ESTIMATED BLOOD LOSS: MMODAL /[id number]
== END 2018-10-11 12:45 | disposition home or self-care (01) ==
LOC: JD.SDS 08:20
PROVIDERS: ATTEND Surgery
DX: R19.4 Change in bowel habit (principal); D12.0 Benign neoplasm of cecum; K31.819 Angiodysplasia of stomach and duodenum without bleeding; K21.9 Gastro-esophageal reflux disease without esophagitis; E11.9 Type 2 diabetes mellitus without complications; E21.3 Hyperparathyroidism, unspecified; E78.2 Mixed hyperlipidemia; I10 Essential (primary) hypertension; I25.2 Old myocardial infarction; Z87.891 Personal history of nicotine dependence; Z85.038 Personal history of other malignant neoplasm of large intestine; Z79.84 Long term (current) use of oral hypoglycemic drugs; Z79.82 Long term (current) use of aspirin; Z79.899 Other long term (current) drug therapy; Z88.0 Allergy status to penicillin; Z88.8 Allergy status to other drugs, medicaments and biological substances; Z91.048 Other nonmedicinal substance allergy status; Z98.890 Other specified postprocedural states
CPT/HCPCS: 43239; 45385; 82962; J7120

== ENCOUNTER 2023-08-08 16:17 | Emergency (ER) | payer MEDICARE, OTHER ==
[2023-08-08 17:12] LABS: BASOPHILS ABSOLUTE AUTO 0.1 K/mm3 (0.0-0.2); BASOPHILS PERCENT AUTO 0.4 % (0.0-1.0); EOSINOPHILS ABSOLUTE AUTO 0.1 K/mm3 (0.0-0.4); EOSINOPHILS PERCENT AUTO 0.6 % (0.0-6.0); HEMATOCRIT 44.2 % (42.0-52.0); HEMOGLOBIN 14.6 gm/dl (14.0-18.0); IMMATURE GRAN ABSOLUTE AUTO 0.06 K/mm3 (0.00-0.05); IMMATURE GRAN PERCENT AUTO 0.5 % (0.0-0.4); LYMPHOCYTES ABSOLUTE AUTO 1.7 K/mm3 (1.0-4.8); MEAN CORPUSCULAR VOLUME 93.8 fl (83.0-99.0); MEAN PLATELET VOLUME 10.8 fl (9.4-12.4); MONOCYTES ABSOLUTE AUTO 0.9 K/mm3 (0.0-0.8); MONOCYTES PERCENT AUTO 7.6 % (0.0-8.0); NEUTROPHILS ABSOLUTE AUTO 9.4 K/mm3 (1.8-7.7); NEUTROPHILS PERCENT AUTO 76.9 % (41.0-71.0); PLATELET COUNT,PLT 235 K/mm3 (150-400); RED BLOOD CELL COUNT 4.71 M/mm3 (4.52-5.90); WHITE BLOOD CELL COUNT,WBC 12.24 K/mm3 (3.9-11.3)
[2023-08-08] MEDS: Sodium Chloride 0.9% 10 ML Syringe FLUSH PRN (17:14)
[2023-08-08] MEDS: Ondansetron 4 MG/2 ML SDV IVPUSH ONE ×2 (17:14→19:28)
[2023-08-08] MEDS: Sodium Chloride 0.9% 1,000 ML IV STA (17:14)
[2023-08-08] MEDS: Famotidine 20 MG/2 ML SDV IVPUSH ONE (17:14)
[2023-08-08] MEDS: HYDROmorphone 0.5 MG/0.5 ML Syringe IVPUSH ONE ×3 (17:14→19:29)
[2023-08-08 17:33] LABS: A/G RATIO 0.9 (1-2); ALBUMIN 3.4 g/dl (3.4-5.0); ANION GAP 15.4 (5-15); BILIRUBIN TOTAL 0.3 mg/dL (0.2-1.0); BUN/CREATININE RATIO 17.3 (14-18); C-REACTIVE PROTEIN 2.17 mg/dL (<0.30); CREATININE 1.5 mg/dL (0.7-1.3); EST CRCL DRUG DOSING (CG) 40.44 mL/min; POTASSIUM,K 4.4 mEq/L (3.5-5.1); PROTEIN TOTAL,TP 7.2 g/dl (6.4-8.2)
[2023-08-08] MEDS: Alum Hydrox/Mag Hydrox/Simeth 30 ML, Lidocaine 2% 15 ML PO ONE (20:16)
[2023-08-08 20:21] LABS: CORONAVIRUS COVID-19 NAA NEGATIVE (NEGATIVE); INFLUENZA A NAA NEGATIVE (NEGATIVE); RESPIRATORY SYNCYTIAL VIR NAA NEGATIVE (NEGATIVE)
[2023-08-08 20:22] LABS: APPEARANCE,URINE TURBID (Clear); BILIRUBIN,URINE 1+ (Negative); COLOR,URINE BROWN (Yellow); GLUCOSE,URINE 2+ (Negative); KETONES,URINE TRACE (Negative); LEUKOCYTE ESTERASE,URINE NEGATIVE (Negative); NITRITE,URINE NEGATIVE (Negative); OCCULT BLOOD,URINE 3+ (Negative); PROTEIN,URINE 3+ (Negative); UROBILINOGEN,URINE 0.2 (0.2-1.0)
[2023-08-08 20:38] LABS: BACTERIA,URINE FEW /hpf (FEW); EPITHELIAL CELLS,URINE 0-5 /hpf (0-5); MUCUS,URINE NOT SEEN /hpf (FEW); RBC,URINE >100 /hpf (0-5); WBC,URINE 0-5 /hpf (0-5)
[2023-08-08] MEDS: Dicyclomine 20 MG/2 ML SDV IM ONE (20:45)
[2023-08-08 23:08] VITALS: BP 141/95; PULSE 88
== END 2023-08-08 22:45 | disposition home or self-care (01) ==
LOC: JD.ED 16:17
DX: K52.9 Noninfective gastroenteritis and colitis, unspecified (principal); I10 Essential (primary) hypertension; I25.2 Old myocardial infarction; E78.00 Pure hypercholesterolemia, unspecified; I25.10 Atherosclerotic heart disease of native coronary artery without angina pectoris; K21.9 Gastro-esophageal reflux disease without esophagitis; E11.9 Type 2 diabetes mellitus without complications; Z91.041 Radiographic dye allergy status; Z88.0 Allergy status to penicillin; Z88.6 Allergy status to analgesic agent; Z79.82 Long term (current) use of aspirin; Z79.899 Other long term (current) drug therapy; Z79.84 Long term (current) use of oral hypoglycemic drugs; Z87.891 Personal history of nicotine dependence
CPT/HCPCS: 0241U; 36415; 70450; 74176; 80053; 81001; 83690; 85025; 86140; 96361; 96372; 96374; 96375; 96376; 99284; A9270; J0500; J1170; J2405; J3490; J7030

== ENCOUNTER 2023-08-09 09:24 | Inpatient (IN) | payer MEDICARE, OTHER ==
[2023-08-09] MEDS: Sodium Chloride 0.9% 1,000 ML IV ONE ×2 (10:34→14:47)
[2023-08-09 10:45] LABS: BASOPHILS PERCENT AUTO 0.2 % (0.0-1.0); EOSINOPHILS ABSOLUTE AUTO 0.2 K/mm3 (0.0-0.4); EOSINOPHILS PERCENT AUTO 0.9 % (0.0-6.0); HEMATOCRIT 42.8 % (42.0-52.0); HEMOGLOBIN 14.8 gm/dl (14.0-18.0); IMMATURE GRAN ABSOLUTE AUTO 0.09 K/mm3 (0.00-0.05); IMMATURE GRAN PERCENT AUTO 0.4 % (0.0-0.4); LYMPHOCYTES ABSOLUTE AUTO 0.3 K/mm3 (1.0-4.8); LYMPHOCYTES PERCENT AUTO 1.2 % (24.0-44.0); MEAN CORPUSCULAR HEMOGLOBIN 31.3 pg (28.0-32.0); MEAN CORPUSCULAR HGB CONC 34.6 g/dl (32.0-36.0); MEAN CORPUSCULAR VOLUME 90.5 fl (83.0-99.0); MONOCYTES ABSOLUTE AUTO 1.7 K/mm3 (0.0-0.8); MONOCYTES PERCENT AUTO 7.2 % (0.0-8.0); NEUTROPHILS ABSOLUTE AUTO 21.8 K/mm3 (1.8-7.7); NEUTROPHILS PERCENT AUTO 90.1 % (41.0-71.0); PLATELET COUNT,PLT 231 K/mm3 (150-400); RED BLOOD CELL COUNT 4.73 M/mm3 (4.52-5.90); WHITE BLOOD CELL COUNT,WBC 24.17 K/mm3 (3.9-11.3)
[2023-08-09] MEDS ORDERED: Naloxone 0.4 MG/ML SDV IVPUSH PRN ×2 (11:08→12:18)
[2023-08-09 11:13] LABS: APPEARANCE,URINE CLOUDY (Clear); BILIRUBIN,URINE 1+ (Negative); COLOR,URINE AMBER (Yellow); GLUCOSE,URINE 2+ (Negative); KETONES,URINE TRACE (Negative); LEUKOCYTE ESTERASE,URINE NEGATIVE (Negative); NITRITE,URINE NEGATIVE (Negative); OCCULT BLOOD,URINE 3+ (Negative); PH,URINE 5.5 (5.0-8.0); PROTEIN,URINE 3+ (Negative); UROBILINOGEN,URINE 0.2 (0.2-1.0)
[2023-08-09] MEDS: Morphine 4 MG/ML Syringe IVPUSH ONE (11:16)
[2023-08-09] MEDS: Ondansetron 4 MG/2 ML SDV IVPUSH ONE (11:16)
[2023-08-09 11:17] LABS: A/G RATIO 0.8 (1-2); ALBUMIN 3.4 g/dl (3.4-5.0); ANION GAP 18.3 (5-15); BILIRUBIN TOTAL 0.9 mg/dL (0.2-1.0); BUN/CREATININE RATIO 22.3 (14-18); CALCIUM 9.1 mg/dL (8.5-10.1); CREATININE 1.3 mg/dL (0.7-1.3); EST CRCL DRUG DOSING (CG) 48.09 mL/min; MAGNESIUM 1.8 mg/dL (1.8-2.4); POTASSIUM,K 4.3 mEq/L (3.5-5.1); PROTEIN TOTAL,TP 7.5 g/dl (6.4-8.2); TSH 0.813 uIU/mL (0.358-3.74)
[2023-08-09 11:29] LABS: BACTERIA,URINE MODERATE /hpf (FEW); EPITHELIAL CELLS,URINE NOT SEEN /hpf (0-5); RBC,URINE >100 /hpf (0-5); WBC,URINE 0-5 /hpf (0-5)
[2023-08-09 11:30] LABS: MUCUS,URINE FEW /hpf (FEW)
[2023-08-09 11:33] LABS: SLIDE REVIEW ABNORMAL SMEAR
[2023-08-09] MEDS ORDERED: Sodium Chloride 0.9% 1,000 ML IV ONE ×2 (12:18→14:17)
[2023-08-09] MEDS ORDERED: Albuterol/Ipratropium 3.0-0.5 MG/3 ML Neb Soln NEB PRN (12:48)
[2023-08-09] MEDS ORDERED: oxyCODONE 5 MG Tab PO PRN (12:48)
[2023-08-09] MEDS ORDERED: Polyethylene Glycol 3350 Powder 17 GM Packet PO PRN (12:48)
[2023-08-09] MEDS ORDERED: Ondansetron 4 MG/2 ML SDV IV PRN (12:48)
[2023-08-09] MEDS ORDERED: Docusate Sodium 100 MG Cap PO PRN (12:48)
[2023-08-09] MEDS ORDERED: Acetaminophen 325 MG Tab PO PRN (12:48)
[2023-08-09] MEDS ORDERED: Benzocaine 20% Topical Spray UD MUCMEM PRN (12:51)
[2023-08-09] MEDS: Benzocaine 20% Topical Spray UD MUCMEM ONE (13:07)
[2023-08-09] MEDS: Sodium Chloride 0.9% 1,000 ML IV SCH (13:07)
[2023-08-09] MEDS: HYDROmorphone 0.5 MG/0.5 ML Syringe IVPUSH ONE (13:07)
[2023-08-09] MEDS: Promethazine 12.5 MG in Sodium Chloride 0.9% 50 ML IV ONE (13:07)
[2023-08-09 14:16] LABS: LACTIC ACID 3.2 mmol/L (0.4-2.0)
[2023-08-09] MEDS: HYDROmorphone 0.5 MG/0.5 ML Syringe IVPUSH PRN (14:41)
[2023-08-09] MEDS: Pantoprazole 40 MG Vial IVPUSH SCH (14:45)
[2023-08-09] MEDS: Heparin Sodium 5,000 Units/ML Vial SUBCUT SCH (14:48)
[2023-08-09] MEDS: HYDROmorphone 1 MG/ML Syringe IVPUSH ONE (15:52)
[2023-08-09 17:28] VITALS: BP 183/76; PULSE 100
[2023-08-10] MEDS ORDERED: Sertraline 25 MG Tab PO SCH (09:00)
[2023-08-10] MEDS ORDERED: Ezetimibe 10 MG Tab PO SCH (09:00)
== END 2023-08-09 16:07 | DRG 389 ==
LOC: JD.ED 09:24 → JD.MS 12:44
PROVIDERS: ADMIT Internal Medicine; ATTEND Internal Medicine
PROC: 0D9670Z Drainage of Stomach with Drainage Device, Via Natural or Artificial Opening (ICD-10-PCS; principal; 2023-08-09)
DX: R10.84 Generalized abdominal pain (principal); I10 Essential (primary) hypertension; K56.600 Partial intestinal obstruction, unspecified as to cause; E87.20 Acidosis, unspecified; Z66 Do not resuscitate; I25.10 Atherosclerotic heart disease of native coronary artery without angina pectoris; I25.2 Old myocardial infarction; E78.00 Pure hypercholesterolemia, unspecified; K21.9 Gastro-esophageal reflux disease without esophagitis; G89.29 Other chronic pain; M54.50 Low back pain, unspecified; E11.9 Type 2 diabetes mellitus without complications; E21.3 Hyperparathyroidism, unspecified; N32.89 Other specified disorders of bladder; D72.825 Bandemia; E86.0 Dehydration; N32.9 Bladder disorder, unspecified; Z88.0 Allergy status to penicillin; Z88.8 Allergy status to other drugs, medicaments and biological substances; Z85.038 Personal history of other malignant neoplasm of large intestine; Z91.041 Radiographic dye allergy status; Z79.84 Long term (current) use of oral hypoglycemic drugs; Z98.49 Cataract extraction status, unspecified eye; Z86.73 Personal history of transient ischemic attack (TIA), and cerebral infarction without residual deficits; Z90.49 Acquired absence of other specified parts of digestive tract; Z79.899 Other long term (current) drug therapy
CPT/HCPCS: 36415; 71045; 74176; 80053; 81001; 83605; 83690; 83735; 84443; 85025; J2270; J2405; J7030; 94760; A9270-GY; C9113; J1170; J2550; J3490

== ENCOUNTER 2023-11-04 04:05 | Emergency (ER) | payer MEDICARE, OTHER ==
[2023-11-04 04:38] LABS: BASOPHILS PERCENT AUTO 0.3 % (0.0-1.0); EOSINOPHILS ABSOLUTE AUTO 0.1 K/mm3 (0.0-0.4); EOSINOPHILS PERCENT AUTO 1.3 % (0.0-6.0); HEMATOCRIT 33.5 % (42.0-52.0); HEMOGLOBIN 10.8 gm/dl (14.0-18.0); IMMATURE GRAN ABSOLUTE AUTO 0.03 K/mm3 (0.00-0.05); IMMATURE GRAN PERCENT AUTO 0.3 % (0.0-0.4); LYMPHOCYTES ABSOLUTE AUTO 1.4 K/mm3 (1.0-4.8); MEAN CORPUSCULAR HEMOGLOBIN 30.6 pg (28.0-32.0); MEAN CORPUSCULAR HGB CONC 32.2 g/dl (32.0-36.0); MEAN CORPUSCULAR VOLUME 94.9 fl (83.0-99.0); MEAN PLATELET VOLUME 10.6 fl (9.4-12.4); MONOCYTES ABSOLUTE AUTO 0.9 K/mm3 (0.0-0.8); MONOCYTES PERCENT AUTO 10.4 % (0.0-8.0); NEUTROPHILS ABSOLUTE AUTO 6.5 K/mm3 (1.8-7.7); NEUTROPHILS PERCENT AUTO 72.7 % (41.0-71.0); PLATELET COUNT,PLT 228 K/mm3 (150-400); RED BLOOD CELL COUNT 3.53 M/mm3 (4.52-5.90); WHITE BLOOD CELL COUNT,WBC 9.01 K/mm3 (3.9-11.3)
[2023-11-04 05:03] LABS: ALBUMIN 2.7 g/dl (3.4-5.0); ANION GAP 10.7 (5-15); BILIRUBIN TOTAL 0.4 mg/dL (0.2-1.0); BUN/CREATININE RATIO 15.6 (14-18); CALCIUM 8.1 mg/dL (8.5-10.1); CREATININE 0.9 mg/dL (0.7-1.3); EST CRCL DRUG DOSING (CG) 67.4 mL/min; POTASSIUM,K 3.7 mEq/L (3.5-5.1); PROTEIN TOTAL,TP 5.5 g/dl (6.4-8.2)
[2023-11-04 05:05] LABS: APPEARANCE,URINE TURBID (Clear); COLOR,URINE RED (Yellow); GLUCOSE,URINE NEGATIVE (Negative); PROTEIN,URINE 2+ (Negative)
[2023-11-04 05:06] LABS: BILIRUBIN,URINE NEGATIVE (Negative); KETONES,URINE NEGATIVE (Negative); LEUKOCYTE ESTERASE,URINE TRACE (Negative); NITRITE,URINE NEGATIVE (Negative); OCCULT BLOOD,URINE 3+ (Negative); UROBILINOGEN,URINE 0.2 (0.2-1.0)
[2023-11-04 05:08] LABS: BACTERIA,URINE FEW /hpf (FEW); EPITHELIAL CELLS,URINE 0-5 /hpf (0-5); MUCUS,URINE NOT SEEN /hpf (FEW); RBC,URINE TOO NUMEROUS TO CNT /hpf (0-5); WBC,URINE 0-5 /hpf (0-5)
[2023-11-04 06:11] VITALS: BP 176/61; PULSE 52
== END 2023-11-04 06:11 | disposition home or self-care (01) ==
LOC: JD.ED 04:05
DX: N99.89 Other postprocedural complications and disorders of genitourinary system (principal); I10 Essential (primary) hypertension; E78.00 Pure hypercholesterolemia, unspecified; I25.2 Old myocardial infarction; I25.10 Atherosclerotic heart disease of native coronary artery without angina pectoris; K21.9 Gastro-esophageal reflux disease without esophagitis; E11.9 Type 2 diabetes mellitus without complications; Z91.041 Radiographic dye allergy status; Z88.0 Allergy status to penicillin; Z88.6 Allergy status to analgesic agent; Z79.84 Long term (current) use of oral hypoglycemic drugs; Z79.899 Other long term (current) drug therapy
CPT/HCPCS: 36415; 80053; 81001; 85025; 87086; 99284

== ENCOUNTER 2024-06-04 08:14 | Inpatient (IN) | payer MEDICARE, OTHER ==
[2024-06-04] MEDS: Sodium Chloride 0.9% 500 ML IV ONE (08:31)
[2024-06-04] MEDS: Iopamidol 755 Mg/ML 100 ML Bottle IVPUSH ONE (08:34)
[2024-06-04] MEDS ORDERED: Sodium Chloride 0.9% 100 ML IV SCH (08:45)
[2024-06-04] MEDS: Sodium Chloride 0.9% 10 ML Syringe FLUSH PRN ×2 (08:46)
[2024-06-04 09:09] LABS: BASOPHILS PERCENT AUTO 0.4 % (0.0-1.0); EOSINOPHILS ABSOLUTE AUTO 0.1 K/mm3 (0.0-0.4); EOSINOPHILS PERCENT AUTO 0.6 % (0.0-6.0); HEMOGLOBIN 10.3 gm/dl (14.0-18.0); IMMATURE GRAN ABSOLUTE AUTO 0.05 K/mm3 (0.00-0.05); IMMATURE GRAN PERCENT AUTO 0.5 % (0.0-0.4); LYMPHOCYTES PERCENT AUTO 11.1 % (24.0-44.0); MEAN CORPUSCULAR HEMOGLOBIN 27.7 pg (28.0-32.0); MEAN CORPUSCULAR HGB CONC 31.2 g/dl (32.0-36.0); MEAN PLATELET VOLUME 10.4 fl (9.4-12.4); MONOCYTES ABSOLUTE AUTO 0.6 K/mm3 (0.0-0.8); MONOCYTES PERCENT AUTO 6.9 % (0.0-8.0); NEUTROPHILS ABSOLUTE AUTO 7.4 K/mm3 (1.8-7.7); NEUTROPHILS PERCENT AUTO 80.5 % (41.0-71.0); PLATELET COUNT,PLT 250 K/mm3 (150-400); RED BLOOD CELL COUNT 3.72 M/mm3 (4.52-5.90); WHITE BLOOD CELL COUNT,WBC 9.25 K/mm3 (3.9-11.3)
[2024-06-04 09:10] LABS: MEAN CORPUSCULAR VOLUME 88.7 fl (83.0-99.0)
[2024-06-04 09:35] LABS: INR 0.99; PROTHROMBIN TIME 10.5 SECONDS (9.7-12.0)
[2024-06-04 09:36] LABS: PTT,PARTIAL THROMBOPLSTIN TIME 24.3 SECONDS (21.7-31.4)
[2024-06-04 09:47] LABS: A/G RATIO 0.9 (1-2); ALBUMIN 2.9 g/dl (3.4-5.0); ANION GAP 12.1 (5-15); BILIRUBIN TOTAL 0.5 mg/dL (0.2-1.0); BUN/CREATININE RATIO 16.4 (14-18); CALCIUM 8.2 mg/dL (8.5-10.1); CREATININE 1.1 mg/dL (0.7-1.3); EST CRCL DRUG DOSING (CG) 49.23 mL/min; MAGNESIUM 1.5 mg/dL (1.8-2.4); POTASSIUM,K 4.1 mEq/L (3.5-5.1); PROTEIN TOTAL,TP 6.2 g/dl (6.4-8.2); TSH 3.663 uIU/mL (0.358-3.74)
[2024-06-04] MEDS: Magnesium Sulfate/Water Premix 4 GM in Premix Bag 1 BAG IV ONE (11:12)
[2024-06-04] MEDS: diphenhydrAMINE 50 MG/ML SDV IVPUSH ONE (11:12)
[2024-06-04] MEDS: methylPREDNISolone Sodium Succinate 125 MG/2 ML SDV IVPUSH ONE (11:12)
[2024-06-04] MEDS: methylPREDNISolone Sodium Succinate 40 MG/1 ML SDV ONE (11:16)
[2024-06-04] MEDS: diphenhydrAMINE 50 MG/ML SDV ONE (11:45)
[2024-06-04] MEDS: methylPREDNISolone Sodium Succinate 125 MG/2 ML SDV ONE (11:45)
[2024-06-04] MEDS ORDERED: Ondansetron 4 MG/2 ML SDV IV PRN (12:43)
[2024-06-04] MEDS ORDERED: Docusate Sodium 100 MG Cap PO PRN (12:43)
[2024-06-04] MEDS ORDERED: Polyethylene Glycol 3350 Powder 17 GM Packet PO PRN (12:43)
[2024-06-04] MEDS ORDERED: FLU (Fluad Triv) TS24-25 (65UP)/MF59C/PF 45 MCG/0.5 ML Syringe IM ONE (14:45)
[2024-06-04 19:36] LABS: APPEARANCE,URINE SLT CLOUDY (Clear); BILIRUBIN,URINE NEGATIVE (Negative); COLOR,URINE YELLOW (Yellow); GLUCOSE,URINE NEGATIVE (Negative); KETONES,URINE 1+ (Negative); LEUKOCYTE ESTERASE,URINE TRACE (Negative); NITRITE,URINE NEGATIVE (Negative); OCCULT BLOOD,URINE NEGATIVE (Negative); PH,URINE 5.5 (5.0-8.0); PROTEIN,URINE 2+ (Negative); UROBILINOGEN,URINE 0.2 (0.2-1.0)
[2024-06-04 19:43] LABS: BACTERIA,URINE MANY /hpf (FEW); MUCUS,URINE FEW /hpf (FEW); RBC,URINE 0-5 /hpf (0-5); SQUAMOUS EPITHELIAL CELLS,UR 0-5 /hpf (0-5)
[2024-06-04] MEDS: Melatonin 3 MG Tab PO SCH (21:02)
[2024-06-04] MEDS: Apixaban 2.5 MG Tab PO SCH (21:02)
[2024-06-04] MEDS ORDERED: hydrALAZINE 20 MG/ML SDV IVPUSH PRN (21:05)
[2024-06-04] MEDS: Acetaminophen 325 MG Tab PO PRN (21:17)
[2024-06-05 06:49] LABS: BASOPHILS PERCENT AUTO 0.1 % (0.0-1.0); HEMATOCRIT 37.3 % (42.0-52.0); IMMATURE GRAN ABSOLUTE AUTO 0.08 K/mm3 (0.00-0.05); IMMATURE GRAN PERCENT AUTO 0.6 % (0.0-0.4); LYMPHOCYTES ABSOLUTE AUTO 0.8 K/mm3 (1.0-4.8); MEAN CORPUSCULAR HEMOGLOBIN 27.6 pg (28.0-32.0); MEAN CORPUSCULAR HGB CONC 32.2 g/dl (32.0-36.0); MEAN CORPUSCULAR VOLUME 85.7 fl (83.0-99.0); MEAN PLATELET VOLUME 10.8 fl (9.4-12.4); MONOCYTES ABSOLUTE AUTO 0.8 K/mm3 (0.0-0.8); NEUTROPHILS ABSOLUTE AUTO 11.6 K/mm3 (1.8-7.7); NEUTROPHILS PERCENT AUTO 87.3 % (41.0-71.0); PLATELET COUNT,PLT 315 K/mm3 (150-400); RED BLOOD CELL COUNT 4.35 M/mm3 (4.52-5.90); WHITE BLOOD CELL COUNT,WBC 13.26 K/mm3 (3.9-11.3)
[2024-06-05 07:08] LABS: A/G RATIO 0.8 (1-2); ALBUMIN 3.1 g/dl (3.4-5.0); ANION GAP 14.9 (5-15); BILIRUBIN TOTAL 0.6 mg/dL (0.2-1.0); CALCIUM 8.9 mg/dL (8.5-10.1); CREATININE 1.4 mg/dL (0.7-1.3); EST CRCL DRUG DOSING (CG) 42.58 mL/min; MAGNESIUM 2.1 mg/dL (1.8-2.4); POTASSIUM,K 3.9 mEq/L (3.5-5.1)
[2024-06-05] MEDS: cefTRIAXone 2 GM Vial IVPUSH SCH (08:22)
[2024-06-05] MEDS: Tamsulosin 0.4 MG Cap.ER PO SCH (08:24)
[2024-06-05] MEDS: Potassium Chloride 20 MEQ Tab.ER PO SCH (08:24)
[2024-06-05] MEDS: Amiodarone 200 MG Tab PO SCH (08:24)
[2024-06-05] MEDS: Lisinopril 20 MG Tab PO SCH (08:24)
[2024-06-05] MEDS: Ezetimibe 10 MG Tab PO SCH (08:24)
[2024-06-05] MEDS: amLODIPine 5 MG Tab PO SCH (08:25)
[2024-06-05] MEDS: LORazepam 2 MG/ML SDV ONE (08:48)
[2024-06-05] MEDS: LORazepam 2 MG/ML SDV IVPUSH ONE (08:49)
[2024-06-05] MEDS ORDERED: Non-Formulary Medication 1 Each (Potassium Chloride [Potassium Chloride] 20 MEQ Tablet.Er) PO SCH (09:00)
[2024-06-05] MEDS: levETIRAcetam 500 MG/5 ML SDV IVPUSH ONE (10:31)
[2024-06-05] MEDS: Insulin Lispro 100 Unit/ML 3 ML KwikPen SUBCUT SCH (11:25)
[2024-06-05] MEDS: Apixaban 5 MG Tab PO SCH (21:07)
[2024-06-05] MEDS: levETIRAcetam 500 MG Tab PO SCH (21:07)
[2024-06-06 04:40] LABS: BASOPHILS PERCENT AUTO 0.4 % (0.0-1.0); EOSINOPHILS ABSOLUTE AUTO 0.1 K/mm3 (0.0-0.4); EOSINOPHILS PERCENT AUTO 0.6 % (0.0-6.0); HEMATOCRIT 32.4 % (42.0-52.0); HEMOGLOBIN 10.2 gm/dl (14.0-18.0); IMMATURE GRAN ABSOLUTE AUTO 0.03 K/mm3 (0.00-0.05); IMMATURE GRAN PERCENT AUTO 0.3 % (0.0-0.4); LYMPHOCYTES PERCENT AUTO 19.7 % (24.0-44.0); MEAN CORPUSCULAR HGB CONC 31.5 g/dl (32.0-36.0); MEAN CORPUSCULAR VOLUME 85.7 fl (83.0-99.0); MEAN PLATELET VOLUME 10.6 fl (9.4-12.4); MONOCYTES PERCENT AUTO 10.4 % (0.0-8.0); NEUTROPHILS ABSOLUTE AUTO 6.8 K/mm3 (1.8-7.7); NEUTROPHILS PERCENT AUTO 68.6 % (41.0-71.0); PLATELET COUNT,PLT 265 K/mm3 (150-400); RED BLOOD CELL COUNT 3.78 M/mm3 (4.52-5.90); WHITE BLOOD CELL COUNT,WBC 9.94 K/mm3 (3.9-11.3)
[2024-06-06 05:10] LABS: A/G RATIO 0.9 (1-2); ALBUMIN 2.8 g/dl (3.4-5.0); BILIRUBIN TOTAL 0.4 mg/dL (0.2-1.0); CALCIUM 8.2 mg/dL (8.5-10.1); EST CRCL DRUG DOSING (CG) 59.61 mL/min; MAGNESIUM 1.9 mg/dL (1.8-2.4)
[2024-06-06 12:52] VITALS: BP 140/62; PULSE 52
== END 2024-06-06 12:34 | disposition home or self-care (01) | DRG 68 ==
LOC: JD.ED 08:14 → JD.MS 11:30
PROVIDERS: ADMIT Internal Medicine; ATTEND Internal Medicine
DX: I65.23 Occlusion and stenosis of bilateral carotid arteries (principal); N30.00 Acute cystitis without hematuria; I25.10 Atherosclerotic heart disease of native coronary artery without angina pectoris; E78.00 Pure hypercholesterolemia, unspecified; K21.9 Gastro-esophageal reflux disease without esophagitis; G89.29 Other chronic pain; F15.90 Other stimulant use, unspecified, uncomplicated; E83.42 Hypomagnesemia; Z66 Do not resuscitate; E11.65 Type 2 diabetes mellitus with hyperglycemia; M54.9 Dorsalgia, unspecified; E03.9 Hypothyroidism, unspecified; Z85.038 Personal history of other malignant neoplasm of large intestine; Z86.16 Personal history of COVID-19; I25.2 Old myocardial infarction; Z88.0 Allergy status to penicillin; Z88.8 Allergy status to other drugs, medicaments and biological substances; Z91.041 Radiographic dye allergy status; Z79.1 Long term (current) use of non-steroidal anti-inflammatories (NSAID); Z79.84 Long term (current) use of oral hypoglycemic drugs; Z79.01 Long term (current) use of anticoagulants; Z79.899 Other long term (current) drug therapy; Z98.49 Cataract extraction status, unspecified eye; Z98.890 Other specified postprocedural states
CPT/HCPCS: 36415; 70450; 70450-26; 70496; 70496-26; 70498; 70498-26; 70551; 70551-26; 71045; 71045-26; 80053; 80061; 80307; 81001; 82140; 82947; 83036; 83690; 83735; 83880; 84443; 84484; 85025; 85610; 85730; 87086; 87088; 87186; 87641; 93005; 96361; 96374; 96375; 97110-GP; 97116-GP; 97162-GP; 97530-GP; 99285-25; A9270-GY; J0696; J1200; J1815; J1953; J2060; J2919; J3475; J7030; Q9967